=== PATIENT | female | born 2000 | race Caucasian/White ===

== ENCOUNTER 2019-09-25 17:30 | Emergency (ER) | payer OTHER ==
[2019-10-22 14:32] LABS: HEMATOCRIT 48.2 % (36.0-47.0); HEMOGLOBIN 15.8 g/dl (12.0-15.5); MEAN CORPUSCULAR HEMOGLOBIN 30.1 pg (27.0-33.0); MEAN CORPUSCULAR HGB CONC 32.8 g/dl (32.0-36.5); MEAN CORPUSCULAR VOLUME 91.8 fl (80.0-96.0); PLATELET COUNT, AUTOMATED 274 10^3/uL (150-450); RED BLOOD COUNT 5.25 10^6/uL (4.00-5.40); WHITE BLOOD COUNT 6.4 10^3/uL (4.0-10.0)
[2019-11-02 08:16] LABS: ALBUMIN 4.3 GM/DL (3.2-5.2); ALT/SGPT 19 IU/L (0-32); BILIRUBIN,DIRECT 0.1 MG/DL (0.0-0.2); BILIRUBIN,TOTAL 0.6 MG/DL (0.2-1.0); BLOOD UREA NITROGEN 11 MG/DL (7-18); CALCIUM LEVEL 9.6 MG/DL (8.5-10.1); CARBON DIOXIDE LEVEL 26 mmol/L (20-29); CHLORIDE LEVEL 108 MEQ/L (98-107); CREATININE FOR GFR 0.81 MG/DL (0.55-1.30); GLUCOSE, FASTING 94 MG/DL (70-100); POTASSIUM SERUM 4.1 MEQ/L (3.5-5.1); SODIUM LEVEL 141 MEQ/L (136-145)
[2019-11-02 08:17] LABS: LIPASE 138 U/L (73-393)
== END 2019-09-25 19:18 | disposition home or self-care (01) ==
LOC: M ED 17:30
DX: R11.2 Nausea with vomiting, unspecified (principal); R19.7 Diarrhea, unspecified; R51 Headache; Z88.0 Allergy status to penicillin

== ENCOUNTER 2020-03-23 12:22 | Emergency (ER) | payer SELFPAY ==
[~2020-03-23] VITALS: Ht 157.5 cm; Wt 62.3 kg
--- OUTSIDE RECORDS SUMMARY | 2020-03-23 12:50 | CCD ---
Author Author [facility] Organization [facility] Address Unknown Phone Unavailable Care Team Providers Care Sanitation Associate Name Role Phone Reid HEAD WELL PULLER, Jodie Kayleigh Unavailable Reid HEAD WELL PULLER, Jodie Kayleigh Unavailable [phone] Reid HEAD WELL PULLER, Jodie Kayleigh Unavailable Reid HEAD WELL PULLER, Jodie Kayleigh Unavailable Reid HEAD WELL PULLER, Jodie Kayleigh Unavailable [phone] Reid HEAD WELL PULLER, Jodie Kayleigh Unavailable [phone] Trenton, Sofia Ko MD Unavailable Unavailable [place]on, Sofia Ko MD Unavailable Unavailable [place]on, Sofia Ko MD Unavailable Unavailable [place]on, Sofia Ko MD Unavailable Unavailable [place]on, Sofia Ko MD Unavailable Unavailable [place], Sofia Ko MD Unavailable Unavailable [place]on, Sofia Ko MD Unavailable Unavailable [place]on, Sofia Ko MD Unavailable Unavailable [place], Sofia Ko MD Unavailable Unavailable [place], oSfia Ko MD Unavailable Unavailable [place]on, Sofia Ko MD Unavailable Unavailable [place]on, Sofia Ko MD Unavailable Unavailable [place]on, Sofia Ko MD Unavailable Unavailable [place]on, Sofia Ko MD Unavailable Unavailable [place]on, Sofia Ko MD Unavailable Unavailable [place]on, Sofia Ko MD Unavailable Unavailable [place]on, Sofia Ko MD Unavailable Unavailable [place]on, Sofia Ko MD Unavailable Unavailable Trenton, Sofia Ko MD Unavailable Unavailable Trenton, Sofia Ko MD Unavailable Unavailable Trenton, Sofia Ko MD Unavailable Unavailable Trenton, Sofia Ko MD Unavailable Unavailable [place]on, Sofia Ko MD Unavailable Unavailable [place]on, Sofia Ko MD Unavailable Unavailable [place]on, Sofia Ko MD Unavailable Unavailable [place]on, Sofia Ko MD Unavailable Unavailable [place]on, Sofia oK MD Unavailable Unavailable [place]on, Sofia Ko MD Unavailable Unavailable [place]on, Sofia Ko MD Unavailable Unavailable [place]on, Sofia Ko MD Unavailable Unavailable [place]on, A Stefani BURRELL Unavailable Unavailable [place]on, A Stefani BURRELL Unavailable Unavailable [place]on, A Stefani BURRELL Unavailable Unavailable [place], A Stefani BURRELL Unavailable Unavailable [place]on, A Stefani BURRELL Unavailable Unavailable [place]on, A Stefani BURRELL Unavailable Unavailable [place]on, A Stefani BURRELL Unavailable Unavailable [place]on, A Stefani BURRELL Unavailable Unavailable [place]on, A Stefani BURRELL Unavailable Unavailable [place]on, A Stefani BURRELL Unavailable Unavailable [place], A Stefani BURRELL Unavailable Unavailable [place]on, A Stefani BURRELL Unavailable Unavailable [place], A Stefani BURRELL Unavailable Unavailable [place]on, A Stefani BURRELL Unavailable Unavailable [place]on, A Stefani BURRELL Unavailable Unavailable [place]on, A Stefani BURRELL Unavailable Unavailable [place]on, A Stefani BURRELL Unavailable Unavailable [place]on, A Stefani BURRELL Unavailable Unavailable [place]on, A Stefani BURRELL Unavailable Unavailable [place]on, A Stefani BURRELL Unavailable Unavailable [place], A Stefani BURRELL Unavailable Unavailable [place]on, A Stefani BURRELL Unavailable Unavailable [place]on, A Stefani BURRELL Unavailable Unavailable [place]on, A Stefani BURRELL Unavailable Unavailable [place], A Stefani BURRELL Unavailable Unavailable [place], A Stefani BURRELL Unavailable Unavailable [place], A Stefani BURRELL Unavailable Unavailable [place], A Stefani BURRELL Unavailable Unavailable [place], A Stefani BURRELL Unavailable Unavailable [place], A Stefani BURRELL Unavailable Unavailable [place]on, A Stefani BURRELL Unavailable Unavailable [place]on, A Stefani BURRELL Unavailable Unavailable [place], A Stefani BURRELL Unavailable Unavailable [place]on, A Stefani BURRELL Unavailable Unavailable [place]on, A Stefani BURRELL Unavailable Unavailable [place]on, A Stefani BURRELL Unavailable Unavailable [place]on, A Stefani BURRELL Unavailable Unavailable [place]on, A Stefani BURRELL Unavailable Unavailable [place]on, A Stefani BURRELL Unavailable Unavailable [place], A Stefani BURRELL Unavailable Unavailable [place], A Stefani BURRELL Unavailable Unavailable [place], A Stefani BURRELL Unavailable Unavailable [place], A Stefani BURRELL Unavailable Unavailable [place], A Stefani BURRELL Unavailable Unavailable [place], A Stefani BURRELL Unavailable Unavailable of L.C., Medicine Occupation Unavailable Unavailable Yuma, J Sommer PA Unavailable Unavailable Yuma, J Sommer PA Unavailable Unavailable Yuma, J Sommer PA Unavailable Unavailable [place]uma, J Sommer PA Unavailable Unavailable [place]uma, J Sommer PA Unavailable Unavailable [place]uma, J Sommer PA Unavailable Unavailable [place], J Sommer PA Unavailable Unavailable [place], J Sommer PA Unavailable Unavailable [place], J Sommer PA Unavailable Unavailable [place], J Sommer PA Unavailable Unavailable [place]uma, J Sommer PA Unavailable Unavailable [place]uma, J Sommer PA Unavailable Unavailable [place], J Sommer PA Unavailable Unavailable [place], J Sommer PA Unavailable Unavailable [place]uma, J Sommer PA Unavailable Unavailable Yuma, Jaclyn Novoa PA Unavailable Unavailable [place], Jaclyn Novoa PA Unavailable Unavailable [place]uma, Jaclyn Novoa PA Unavailable Unavailable Yuma, Jaclyn Novoa PA Unavailable Unavailable Yuma, Jaclyn Novoa PA Unavailable Unavailable [place], Jaclyn Novoa PA Unavailable Unavailable Yuma, Jaclyn Novoa PA Unavailable Unavailable Re-disclosure Warning The records that you are about to access may contain information from federally-assisted alcohol or drug abuse programs. If such information is present, then the following federally mandated warning applies: This information has been disclosed to you from records protected by federal confidentiality rules (42 CFR part 2). The federal rules prohibit you from making any further disclosure of this information unless further disclosure is expressly permitted by the written consent of the person to whom it pertains or as otherwise permitted by 42 CFR part 2. A general authorization for the release of medical or other information is NOT sufficient for this purpose. The Federal rules restrict any use of the information to criminally investigate or prosecute any alcohol or drug abuse patient.The records that you are about to access may contain highly sensitive health information, the redisclosure of which is protected by Article 27-F of the [facility] Public Health law. If you continue you may have access to information: Regarding HIV / AIDS; Provided by facilities licensed or operated by the [facility] Office of Mental Health; or Provided by the [facility] Office for People With Developmental Disabilities. If such information is present, then the following [facility] mandated warning applies: This information has been disclosed to you from confidential records which are protected by state law. State law prohibits you from making any further disclosure of this information without the specific written consent of the person to whom it pertains, or as otherwise permitted by law. Any unauthorized further disclosure in violation of state law may result in a fine or snf sentence or both. A general authorization for the release of medical or other information is NOT sufficient authorization for further disc losure. Encounters Encounter Providers Location Date Indications Data Source(s ) Attender: Stefani Chowdhury MD [facility] [place] 03/2019 10:19:00 AM EDT - 06/02/2019 10:19:00 AM EDT [facility] Outpatient Attender: Coleen 06/01/2019 10:29:0 0 AM EDT [facility] Outpatient[facility], EST Post AB Attender: Kayleigh decker HEAD WELL PULLER [facility] [place] 05/27/2019 03:00:00 PM EDT - 05/27/2019 03:00:00 PM ED T Encntr for f/u exam aft trtmt for cond oth than malig neoplmEncounter for initial prescription of injectable contracepEncounter for oth general cnsl and advice on contraceptionOther sex counseling [facility] ([facility]) Encntr for f/u exam aft trtmt for cond o th than malig neoplm Encounter for initial prescription of in jectable contracep Encounter for oth general cnsl and advic e on contraception Other sex counseling Attender: Kayleigh MENDES PPNCKATIA [place] 05/20/2019 08:17:00 PM EDT - 05/20/2019 08:17:00 PM EDT Encounter for elective termination of [facility] ([facility]) Encounter for elective termination of pr egnancy Attender: Kayleigh MENDES PPNCKATIA [place] 05/19/2019 02:45:00 PM EDT - 05/19/2019 02:45:00 PM EDT Encounter for elective termination of [facility] ([facility]) Encounter for elective termination of pr egnancy OutpatientOFFICE VISIT, NEW Attender: Sommer PHAN PPNCKATIA [place] 05/12/2019 02:30:00 PM EDT - 05/12/2019 02:30:00 PM EDT Weeks of gestation of not specifiedEncounter for preprocedural laboratory examinationEncounter for other preprocedural examinationEncounter for blood typing state, incidentalProblems related to unwanted pregnancyEncounter for test, result positiveEncounter for oth general cnsl and advice on contraceptionEncntr screen for infections w sexl mode of transmissHuman immunodeficiency virus [HIV] counselingOther sex counseling [facility] ([facility]) Weeks of gestation of not spec ified Encounter for preprocedural laboratory e xamination Encounter for other preprocedural examin ation Encounter for blood typing state, incidental Problems related to unwanted Encounter for test, result pos itive Encounter for oth general cnsl and advic e on contraception Encntr screen for infections w sexl mode of transmiss Human immunodeficiency virus [HIV] couns eling Other sex counseling Medications Medication Brand Name Start Date Product Form Dose Route Admi nistrative Instructions Pharmacy Instructions Status Indications Reaction Description Data Source(s) medroxyprogesterone acetate 150 MG/ML In jectable Suspension medroxyprogesterone 150 mg/mL intramuscular suspension medroxyprogesterone 150 mg/mL intramuscu lar suspension 05/27/2019 12:00:00 AM EDT active IM every 10-13 weeks [facility] ([facility]) Ondansetron 4 MG Oral Tablet ondansetron HCl 4 mg tabl et ondansetron HCl 4 mg tablet 05/19/2019 12:00:00 AM EDT completed 1 tab po every 4 hours prn (#4) [facility] ([facility]) Mifepristone 200 MG Oral Tablet [Mifeprex] Mifeprex 20 0 mg tablet Mifeprex 200 mg tablet 05/19/2019 12:00:00 AM EDT complete d Mifepristone 200 MG Oral Tablet [Mifeprex] [facility] ([facility]) Misoprostol 0.2 MG Oral Tablet misoprostol 200 mcg tab let misoprostol 200 mcg tablet 05/19/2019 12:00:00 AM EDT completed 4 tabs buccally 24-48 hrs after mifepristone (#4) [facility] ([facility]) Insurance Providers Payer name Policy type / Coverage type Policy ID Covered libertarian ID Covered libertarian's relationship to pereyra Policy Pereyra Plan Information SELF PAY ONLY [id number] SP [id number] [facility] [id number] [facility] [id number] Surgeries/Procedures Procedure Description Date Indications Data Source(s) NURSE ONLY DEPO INJ. RN/DOCUMENT CONTROL ASSISTANT Only 020 12:00:00 AM EDT - 05/27/2019 12:00:00 AM EDT [facility] ([facility]) Depo/Medroxyprogesterone Inj. 150 Mg Nurse/CA 05/27/2019 12:00:00 AM EDT - 05/27/2019 12:00:00 AM EDT [facility] ([facility]) CVR BC Ending Method HORM.INJ. 3 MOS 12:00:00 AM EDT - 05/27/2019 12:00:00 AM EDT [facility] ([facility]) CVR Career Orientation Teacher.Svc. STI / H 05/27/2019 12:00:00 AM EDT - 05/27/2019 12:00:00 AM EDT [facility] ([facility]) CVR Career Orientation Teacher.Svc. Other 05/27/2019 12:00:00 AM EDT - 2019 12:00:00 AM EDT [facility] ([facility]) CVR Career Orientation Teacher.Svc. Contraceptive 05/27/2019 12 :00:00 AM EDT - 05/27/2019 12:00:00 AM EDT [facility] ([facility]) CVR Med.Svc. Height/Weight 05/27/2019 12 :00:00 AM EDT - 05/27/2019 12:00:00 AM EDT [facility] ([facility]) CVR Blood Pressure 05/27/2019 12:00:00 AM EDT - 2019 12:00:00 AM EDT [facility] ([facility]) Ultrasound Non Uterus 0 12:00:00 AM EDT - 05/27/2019 12:00:00 AM EDT [facility] ([facility]) OFFICE VISIT, EST Post AB 05/27/2019 12: 00:00 AM EDT - 05/27/2019 12:00:00 AM EDT [facility] ([facility]) CVR Career Orientation Teacher.Svc. Other 05/19/2019 12:00:00 AM EDT - 2019 12:00:00 AM EDT [facility] ([facility]) CVR Career Orientation Teacher.Svc. Options 0 12:00:00 AM EDT - 05/19/2019 12:00:00 AM EDT [facility] ([facility]) CVR Career Orientation Teacher.Svc. Contraceptive 05/19/2019 12 :00:00 AM EDT - 05/19/2019 12:00:00 AM EDT [facility] ([facility]) CVR Med.Svc. Height/Weight 05/19/2019 12 :00:00 AM EDT - 05/19/2019 12:00:00 AM EDT [facility] ([facility]) CVR Blood Pressure 05/19/2019 12:00:00 AM EDT - 2019 12:00:00 AM EDT [facility] ([facility]) Est. Patient MAB Exp Prob Focused 2019 12:00:00 AM EDT - 05/19/2019 12:00:00 AM EDT [facility] ([facility]) Ultrasound Uterus 05/19/2019 12 :00:00 AM EDT - 05/19/2019 12:00:00 AM EDT [facility] ([facility]) NGHN Default 05/19/2019 12:00:00 AM EDT - 05/19/2019 1 2:00:00 AM EDT [facility] ([facility]) Misoprostol, oral, 200 mcg 4 Tabs 2019 12:00:00 AM EDT - 05/19/2019 12:00:00 AM EDT [facility] ([facility]) Mifeprex, oral, 200 mg 05/19/2019 12:00: 00 AM EDT - 05/19/2019 12:00:00 AM EDT [facility] ([facility]) CVR Pos.Preg. NOT DESIRED 05/12/2019 12: 00:00 AM EDT - 05/12/2019 12:00:00 AM EDT [facility] ([facility]) CVR Career Orientation Teacher.Svc. STI / H 05/12/2019 12:00:00 AM EDT - 05/12/2019 12:00:00 AM EDT [facility] ([facility]) CVR Career Orientation Teacher.Svc. Other 05/12/2019 12:00:00 AM EDT - 2019 12:00:00 AM EDT [facility] ([facility]) CVR Med.Svc. Height/Weight 05/12/2019 12 :00:00 AM EDT - 05/12/2019 12:00:00 AM EDT [facility] ([facility]) CVR Blood Pressure 05/12/2019 12:00:00 AM EDT - 2019 12:00:00 AM EDT [facility] ([facility]) HCS Without Test 05/12/2019 12:00:00 AM EDT - 05/12/19 20 12:00:00 AM EDT [facility] ([facility]) HCS Without Test 05/12/2019 12:00:00 AM EDT - 05/12/19 20 12:00:00 AM EDT [facility] ([facility]) CAPILLARY BLOOD DRAW 05/12/2019 12:00:00 AM EDT - 05/12/2019 12:00:00 AM EDT [facility] ([facility]) HEMOGLOBIN 05/12/2019 12:00:00 AM EDT - 05/12/2019 1 2:00:00 AM EDT [facility] ([facility]) BLOOD TYPING, RH (D) 05/12/2019 12:00:00 AM EDT - 05/12/2019 12:00:00 AM EDT [facility] ([facility]) N.GONORRHOEAE, URINE 05/12/2019 12:00:00 AM EDT - 05/12/2019 12:00:00 AM EDT [facility] ([facility]) CHYLMD TRACH, URINE 05/12/2019 12:00:00 AM EDT - 05/11 12:00:00 AM EDT [facility] ([facility]) OFFICE VISIT, NEW 05/12/2019 12:00:00 AM EDT - 020 12:00:00 AM EDT [facility] ([facility]) URINE TEST 05/12/2019 12:00:00 AM EDT - 05/12/2019 12:00:00 AM EDT [facility] ([facility]) Results ID Date Data Source [id number] 05/12/2019 03:08:08 PM EDT [facility] ([facility]) Name Value Range Interpretation Code Description Data Bettye rce(s) Supporting Document(s) 15.80 gm/dL Hemoglobin [facility] ([facility]) ID Date Data Source [id number] 05/12/2019 02:40:52 PM EDT [facility] ([facility]) Name Value Range Interpretation Code Description Data Bettye rce(s) Supporting Document(s) PositiveLot: [id number]: 10/31/2020 High Sensitivity Urine Test [facility] ([facility]) Procedure Social History Code Duration Value Status Description Data Source(s ) Smoking 06/02/2019 12:00:00 AM EDT Never smoker completed Never s moker [facility] ([facility]) 05/27/2019 12:00:00 AM EDT Current non-smoker completed C urrent non-smoker [facility] ([facility]) Vital Signs ID Date Data Source UNK Name Value Range Interpretation Code Description Data Source(s) Body mass index (BMI) [Percentile] Per age and gender 88 % 88 % [facility] ([facility]) Body mass index (BMI) [Ratio] 27.44 kg/m2 Overweight 27.44 kg/m2 [facility] ([facility]) Diastolic blood pressure 79 mm[Hg] 79 mm[Hg] [facility] ([facility]) Systolic blood pressure 115 mm[Hg] 115 mm[Hg] N [facility] ([facility]) Body weight 68.039 kg 68.039 kg [facility]) Body height 157.48 cm 157.48 cm [facility] ([facility]) Body mass index (BMI) [Percentile] Per age and gender 88 % 88 % [facility] ([facility]) Body mass index (BMI) [Ratio] 27.51 kg/m2 Overweight 27.51 kg/m2 [facility] ([facility]) Respiratory rate 16 /min 16 /min [facility] ([facility]) Body temperature 36.50 Mily 36.50 Mily [facility] ([facility]) Heart rate 75 /min 75 /min [facility]) Diastolic blood pressure 68 mm[Hg] 68 mm[Hg] [facility] ([facility]) Systolic blood pressure 110 mm[Hg] 110 mm[Hg] N [facility] ([facility]) Body weight 68.220 kg 68.220 kg [facility] ([facility]) Body height 157.48 cm 157.48 cm [facility] ([facility]) Body mass index (BMI) [Percentile] Per age and gender 88 % 88 % [facility] ([facility]) Body mass index (BMI) [Ratio] 27.58 kg/m2 Overweight 27.58 kg/m2 [facility] ([facility]) Heart rate 96 /min 96 /min [facility] ([facility]) Diastolic blood pressure 81 mm[Hg] 81 mm[Hg] [facility] ([facility]) Systolic blood pressure 128 mm[Hg] 128 mm[Hg] N [facility] ([facility]) Body weight 68.402 kg 68.402 kg [facility] ([facility]) Body height 157.48 cm 157.48 cm [facility] Patient Treatment Plan of Care Planned Activity Planned Date Details Description Data Source (s) medroxyprogesterone acetate 150 MG/ML Injectable Suspe nsion 05/27/2019 12:00:00 AM EDT [facility] Ondansetron 4 MG Oral Tablet 05/19/2019 12:00:00 AM EDT [facility] ([facility]) Misoprostol 0.2 MG Oral Tablet 05/19/2019 12:00:00 AM EDT [facility] ([facility]) Mifepristone 200 MG Oral Tablet [Mifeprex] 05/19/2019 12:00:00 AM E DT [facility] ([facility])
[2020-03-23] MEDS ORDERED: METOCLOPRAMIDE INJ 10MG/2ML VIAL (J2765 PER 1) IV ONE (13:00)
[2020-03-23 13:28] LABS: BASO % 0.4 % (0.0-1.0); EOS # 0.1 10^3/uL (0.0-0.5); EOS % 0.6 % (0.0-3.0); HEMATOCRIT 47.1 % (36.0-47.0); HEMOGLOBIN 16.3 g/dl (12.0-15.5); LYMPH # 1.3 10^3/uL (1.5-5.0); LYMPH % 15.3 % (24.0-44.0); MEAN CORPUSCULAR HEMOGLOBIN 30.6 pg (27.0-33.0); MEAN CORPUSCULAR HGB CONC 34.6 g/dl (32.0-36.5); MEAN CORPUSCULAR VOLUME 88.4 fl (80.0-96.0); MONO # 0.6 10^3/uL (0.0-0.8); MONO % 7.7 % (0.0-5.0); NEUTROPHILS # 6.2 10^3/uL (1.5-8.5); NEUTROPHILS % 75.6 % (36.0-66.0); PLATELET COUNT, AUTOMATED 310 10^3/uL (150-450); RED BLOOD COUNT 5.33 10^6/uL (4.00-5.40); WHITE BLOOD COUNT 8.2 10^3/uL (4.0-10.0)
[2020-03-23] MEDS ORDERED: NS 1,000 ML IV ONE (13:30)
[2020-03-23 14:09] LABS: ALBUMIN 4.9 GM/DL (3.2-5.2); ALT/SGPT 21 U/L (12-78); BILIRUBIN,DIRECT 0.4 MG/DL (0.0-0.2); BILIRUBIN,TOTAL 1.2 MG/DL (0.2-1.0); BLOOD UREA NITROGEN 12 MG/DL (7-18); CALCIUM LEVEL 10.6 MG/DL (8.5-10.1); CARBON DIOXIDE LEVEL 20 MEQ/L (21-32); CHLORIDE LEVEL 100 MEQ/L (98-107); CREATININE FOR GFR 0.65 MG/DL (0.55-1.30); GLUCOSE, FASTING 68 MG/DL (70-100); HCG, SERUM QUANTITATIVE 44061 MIU/ML; LIPASE 83 U/L (73-393); POTASSIUM SERUM 3.5 MEQ/L (3.5-5.1); SODIUM LEVEL 135 MEQ/L (136-145); TOTAL PROTEIN 8.5 GM/DL (6.4-8.2)
--- NOTE | 2020-03-23 14:36 | REP ---
INDICATION: n/v, 6 weeks, weight loss. COMPARISON: None. TECHNIQUE: Real-time sonographic evaluation of gravid uterus performed. FINDINGS: There is a single living intrauterine gestation. The estimated gestational age is 5 weeks 6 days based on a crown-rump length of 3 mm, EDC 11/17/2020. heart rate is 119 beats per minute. There is no subchorionic hemorrhage. Yolk sac is also seen within the gestational sac. The right ovary demonstrates a hypoechoic structure probably representing a corpus luteum measuring 1.3 cm in maximum diameter. Blood flow is seen in the right ovary with duplex Doppler evaluation. IMPRESSION: Viable intrauterine gestation estimated gestational age 5 weeks 6 days and heart rate 119 beats per minute. <Electronically signed by Willard Mccloud > 03/23/20 [id number]
[2020-03-23 15:16] LABS: AMPHETAMINES LEVEL URINE NEGATIVE (NEGATIVE); BARBITURATES URINE NEGATIVE (NEGATIVE); BENZODIAZEPINES URINE NEGATIVE (NEGATIVE); CANNABINOIDS URINE POSITIVE (NEGATIVE); COCAINE METABOLITE URINE NEGATIVE (NEGATIVE); METHADONE URINE NEGATIVE (NEGATIVE); OPIATES URINE NEGATIVE (NEGATIVE); PHENCYCLIDINE URINE NEGATIVE (NEGATIVE)
[2020-03-23] MEDS ORDERED: PYRI25TA2 PO (15:33)
[2020-03-23] MEDS ORDERED: UNIS25TA5 PO (15:33)
[2020-03-23] MEDS ORDERED: ONDA4TAB6 PO (15:33)
[2020-03-23] MEDS ORDERED: REGL10TA6 PO (15:33)
[2020-03-23 15:53] VITALS: BP 124/78
== END 2020-03-23 15:56 | disposition home or self-care (01) ==
LOC: M ED 12:22
DX: Z32.01 Encounter for pregnancy test, result positive (principal); R11.2 Nausea with vomiting, unspecified; E80.6 Other disorders of bilirubin metabolism
CPT/HCPCS: 36415; 76801; 80048; 80076; 80307; 81001; 83690; 84702; 85025; 93976; 96361; 96374; 99284; J2765

== ENCOUNTER → 2020-07-18 | Outpatient (REF) ==
[~2020-07-18] MED LIST: ONDA4TAB6 PO; PYRI25TA2 PO; REGL10TA6 PO; UNIS25TA5 PO
== END ==
LOC: M LABSMTC 11:18
PROVIDERS: ATTEND Pediatrics
DX: Z11.52 Encounter for screening for COVID-19 (principal)

== ENCOUNTER → 2020-10-11 | Outpatient (CLI) | payer OTHER ==
--- NOTE | 2020-10-11 14:51 | REP ---
INDICATION: F/U LOW LYING PLACENTA, SIZE LESS THAN DATES. COMPARISON: None. TECHNIQUE: Transabdominal scanning FINDINGS: Multiple ultrasonographic images of the gravid uterus show a single living intrauterine gestation in the cephalic presentation. Doppler interrogation of the heart shows a heart rate of 124 beats per minute. The subjective amniotic fluid volume is within normal limits. The calculated amniotic fluid index is 10.3 with an expected range 7.9 to 24.9. The placenta is left lateral and not low lying. The tip of the placenta measures greater than 8 cm from the internal os. BPD: 9.2 cm 37 weeks 3 days HC: 33.6 cm 38 weeks 3 days AC: 28.8 cm 32 weeks 6 days FL: 6.3 cm 32 weeks 5 days The estimated weight is 2266 g which is at the 15th percentile for a 35 week 1 day gestational age. Doppler interrogation of the umbilical artery shows an A\B ratio of 2.55. This is within the normal range. IMPRESSION: Limited OB ultrasound as described above showing a single living intrauterine gestation with an estimated gestational age of 35 weeks 0 days via composite criteria and an estimated date of delivery of 11/15/2020 by today's exam. <Electronically signed by Raymond Ring > 10/11/20 [id number]
== END ==
LOC: M RAD 13:45
PROVIDERS: ATTEND Obstetrics & Gynecology
DX: O26.843 Uterine size-date discrepancy, third trimester (principal)

== ENCOUNTER 2020-10-24 12:11 | Inpatient (IN) | payer OTHER ==
[~2020-10-24] VITALS: Ht 157.5 cm; Wt 64.9 kg
[2020-10-24] VITALS (20 sets, daily range): BP systolic 110–170; BP diastolic 66–105
[2020-10-24] MEDS ORDERED: PREN1CHW4 PO (12:34)
[2020-10-24] MEDS ORDERED: HOME MED LIST COMPLETE! XX SCH (12:35)
[2020-10-24] MEDS ORDERED: LR 1,000 ML IV ONE (13:00)
--- NOTE | 2020-10-24 13:44 | REP ---
INDICATION: EVALUATION OF FETUS COMPARISON: 10/11/2020 TECHNIQUE: Transabdominal obstetrical ultrasound with color Doppler evaluation. FINDINGS: Examination demonstrates a single live intrauterine in cephalic presentation. motion is identified by technologist. Placenta is noted left lateral and grade 1 without evidence for placenta previa or abruption. Amniotic fluid volume is normal. Cervix measures 4.3 cm in length and appears closed.. Selected gestational age: 37 weeks 0 days with CELESTINA 11/14/2020. FHR equals 139 beats per minute. OPHELIA: 16.8 cm Umbilical artery SD ratio: 2.38 Biophysical profile score: 8/8 IMPRESSION: Single live intrauterine in cephalic presentation. Amniotic fluid volume and biophysical profile score normal. <Electronically signed by Moose Alonzo > 10/24/20 [id number]
[2020-10-24] MEDS: LR 1,000 ML IV SCH ×2 (14:22→22:58)
--- NOTE | 2020-10-24 15:17 | HPEPDOC ---
Obstetrical History & Physical General Date of Admission 24 OCT 2020 History of Present Illness 20 yo at 37w0d with CELESTINA of 14 NOV 2020 presents to L&D from [facility] for prolonged monitoring and BP check due to elevated BP today at [facility]. She denies headache, chest pain, RUQ pain, and visual changes. She denies contractions, leaking of fluid, vaginal bleeding, and reports positive movement. Interval : Late entry to care at 16 weeks Family history of chromosomal abnormality, Quad screen negative Migraine headaches Varicella NI Chief Complaint: Other (Elevated BP) Information Provided By: Patient Age: 20 : 1 Term: 0 Pre-term: 0 Abortions: 0 Livin Care Care: Good Care Dating Final EDC: Nov 14, 2020 Final EDC by: LMP, 1st trimester (US) EGA at Admission: 37.0 Antepartum Course Height (inches): 62 Pre- weight (lbs.): 145 Admission Weight (lbs.): 141 Change in Weight (lbs.): -3 Past Medical History Past Obstetrical History : Past Obstetrical History: Primgravida BUNDLER History: No pertinent history Past Medical History Medical History Migraine headaches Surgical History: Denies/None Family History Significant Family History: No pertinent family hx Social History Marital Status: Family situation: Spouse/partner home Psychosocial History: No pertinent psych hx * Smoker: non-smoker Alcohol: Denies Drugs: denies Abuse Violence Screening Have you been hit/kicked/slapp: No Have you been sexually assault: No Imunizations Tdap status: current Allergies Coded Allergies: No Known Allergies (Unverified , 03/23/20) Medications Scheduled Pnv No.103/Folic/Om3s/Fish Oil ( Gummies) 1 Each Tab.chew, 1 CHW PO BID Physical Examination Physical Examination GENERAL: Alert and oriented times three. BREAST: . ABDOMEN: Gravid and non-tender to touch. FETUS: Is vertex (VTX) by fetus is vertex (VTX) by Harry. HEART RATE: Regular rate and rhythm. LUNGS: Clear to auscultation (CTA). EXTREMITIES: No edema. No clonus. Deep tendon reflexes (DTRs) + 2. BPP 8/8 OPHELIA: 16.8 cm Vital Signs/I&O Vital Signs Date Time Temp Pulse Resp B/P (MAP) Pulse Ox O2 Delivery O2 Flow Rate FiO2 10/24/20 14:36 70 155/88 (110) 10/24/20 13:37 97.4 18 Room Air Pertinent Laboratoy Data Blood Type: O+ RBC Antibody Screen: Negative HIV: Negative Hepatitis B: Negative Rapid Plasma Reagin: Nonreactive Rubella: Immune Varicella: Nonreactive Chlamydia/Gonorrhea: Negative Group B Streptococcus: Negative Quad Screen Test: Negative Steroid Therapy Steroid Therapy: No Assessment Heart Rate (FHR): 135 Variability: Moderate Accelerations: Present Decelerations: None Tocometer Contractions: Yes Frequency: irregular (occasional contractions with uterine irritability) Multi-drug resistant Organism: No history of MDRO Assessment/Plan Assessment IUP at 37w0d Elevated BP Varicella NI Plan Continue to monitor for GHTN vs Pre-eclampsia Continue 24 hr urine collection Discussed with patient that if BP remains elevated after 1530 then will start IO L for GHTN If BP is in normal range, then will discharge to home and initiate the following plan: Recommended to have her to return to [facility] tomorrow for BP check PIH precautions discussed Discussed PIH labs reassuring Recommended to return 24 hr urine tomorrow at [place] [facility] and labor precautions discussed Keep all future appointments at [facility] Discussed HTN in , GHTN vs pre-eclampsia and that if she has another elevated BP during , then will IOL for GHTN, however if 24 hr urine is elevated will IOL for pre-eclampsia. She verbalized understanding of all information and is without any further questions at this time. Discussed patient status with Dr. Bray, who agrees and endorses this plan BENIGNO LEE CNM Oct 24, 2020 15:05
[2020-10-24] MEDS ORDERED: TRANEXAMIC ACID INJection 1,000 MG in NS 100 ML IV PRN (16:45)
[2020-10-24] MEDS ORDERED: OXYTOCIN DRIP 30 UNITS in IV 1 EA IV PRN (16:45)
[2020-10-24 17:41] LABS: HEMOGLOBIN 12.8 g/dl (12.0-15.5); MEAN CORPUSCULAR HGB CONC 32.8 g/dl (32.0-36.5); MEAN CORPUSCULAR VOLUME 88.4 fl (80.0-96.0); PLATELET COUNT, AUTOMATED 117 10^3/uL (150-450); RED BLOOD COUNT 4.41 10^6/uL (4.00-5.40)
[2020-10-24 17:52] LABS: ALT/SGPT 11 U/L (12-78); BILIRUBIN,TOTAL 0.3 MG/DL (0.2-1.0); CREATININE FOR GFR 0.55 MG/DL (0.55-1.30); GLOMERULAR FILTRATION RATE > 60.0 (>60); LDH LACTATE DEHYDROGENASE 191 U/L (84-246); URIC ACID 5.1 MG/DL (2.6-6.0)
[2020-10-24] MEDS ORDERED: miSOPROStol 50MCG 1/2 TABLET PO SCH (18:00)
[2020-10-24] MEDS: miSOPROStol 50MCG 1/2 TABLET SL SCH ×2 (19:07→23:58)
[2020-10-24 19:43] LABS: APPEARANCE, URINE HAZY (CLEAR); BACTERIA, URINE AUTO 2+ (NEGATIVE); BILIRUBIN, URINE AUTO NEGATIVE (NEGATIVE); BLOOD, URINE BLOOD NEGATIVE (NEGATIVE); COLOR, URINE STRAW (YELLOW); GLUCOSE, URINE (UA) AUTO NEGATIVE (NEGATIVE); KETONE, URINE AUTO NEGATIVE (NEGATIVE); LEUKOCYTE ESTERASE, URINE AUTO 3+ (NEGATIVE); NITRITE, URINE AUTO NEGATIVE (NEGATIVE); PROTEIN, URINE AUTO NEGATIVE (NEGATIVE); RBC, URINE AUTO 2 /HPF (0-3); SPECIFIC GRAVITY URINE AUTO 1.004 (1.002-1.035); SQUAMOUS EPITHELIAL CELL UR AU 6 /HPF (0-6); UROBILINOGEN, URINE AUTO 0.2 mg/dL (0.0-2.0); WBC, URINE AUTO 10 /HPF (0-3)
[2020-10-24 20:01] LABS: CREATININE,RANDOM URINE 30.6 MG/DL; TOTAL PROTEIN,RANDOM URINE 6.4 MG/DL (0.0-12.0)
--- NOTE | 2020-10-24 20:01 | IPNPDOC ---
Text Note Date of Service The patient was seen on 10/24/20. NOTE Andrew is a 20 yo at 37+0 weeks gestation who went to her PCM this morning with a headache and report of feeling "unwell." She had COVID testing which was negative. She was noted to be hypertensive. She has no history of elevated BP. Tox labs were drawn and she was sent to L&D for monitoring. On L&D she continued to have persistently elevated BP. Labwork from this morning was unremarkable other than a platelet level of 125. Platelet level previously in was 163. I repeated toxemia labs this morning. Her CMP is unremarkable and her urine pr:cr ratio is pending. Platelets tonight are 117. FHR tracing has been Cat I. A formal US demonstrated a normal OPHELIA and a BPP of 8/8. She reports feeling well at the bedside. Her headache has resolved. She denies any RUQ pain, visual changes, or SOB. Andrew has GHTN and her downtrending platelets are concerning. I recommended an IOL today. Cervix is unfavorable and will start with SL cytotec. She will remain NPO. Will repeat CBC Q4-6 H and monitor vitals closely. Will initiate IV magnesium if necessary. I also discussed with her the possibility of not being able to get an epidural if her platelet levels drop too low. We discussed the induction process in detail. All patient and questions answered. Kathy Antonio, I+O Kathy VALDES, I+O Laboratory Tests 10/24/20 17:17 Vital Signs Date Time Temp Pulse Resp B/P (MAP) Pulse Ox O2 Delivery O2 Flow Rate FiO2 10/24/20 18:57 57 141/95 (110) 10/24/20 16:52 98.0 10/24/20 13:37 18 Room Air JASON CORRAL DO Oct 24, 2020 20:01
[2020-10-24] MEDS ORDERED: BUTORPHANOL 2 MG/ML INJ (J0595) IV PRN ×2 (20:05→20:15)
[2020-10-24] MEDS ORDERED: miSOPROStol 50MCG 1/2 TABLET SL SCH (22:00)
[2020-10-24 22:01] LABS: HEMATOCRIT 41.9 % (36.0-47.0); HEMOGLOBIN 13.6 g/dl (12.0-15.5); MEAN CORPUSCULAR HEMOGLOBIN 28.9 pg (27.0-33.0); MEAN CORPUSCULAR HGB CONC 32.5 g/dl (32.0-36.5); PLATELET COUNT, AUTOMATED 127 10^3/uL (150-450); RED BLOOD COUNT 4.71 10^6/uL (4.00-5.40); WHITE BLOOD COUNT 10.9 10^3/uL (4.0-10.0)
[2020-10-25] VITALS (71 sets, daily range): BP systolic 104–196; BP diastolic 55–141
[2020-10-25] MEDS: LR 1,000 ML IV SCH ×3 (01:07→13:52)
[2020-10-25] MEDS ORDERED: PROMETHAZINE INJ 25 MG/ML VIAL (J2550) IV PRN (01:15)
[2020-10-25] MEDS: miSOPROStol 50MCG 1/2 TABLET SL SCH ×2 (05:32→07:00)
[2020-10-25] MEDS ORDERED: FENTANYL 2MCG/ML ROPIVACAINE 0.2% IN 0.9% NACL 100ML IVBAG As Ordered ONE (06:27)
[2020-10-25 06:50] LABS: HEMATOCRIT 40.9 % (36.0-47.0); HEMOGLOBIN 13.7 g/dl (12.0-15.5); MEAN CORPUSCULAR HEMOGLOBIN 29.3 pg (27.0-33.0); MEAN CORPUSCULAR HGB CONC 33.5 g/dl (32.0-36.5); MEAN CORPUSCULAR VOLUME 87.4 fl (80.0-96.0); PLATELET COUNT, AUTOMATED 102 10^3/uL (150-450); RED BLOOD COUNT 4.68 10^6/uL (4.00-5.40)
[2020-10-25] MEDS ORDERED: TERBUTALINE SULFATE 1 MG/ML VIAL (J3105) SC STA (07:13)
[2020-10-25] MEDS ORDERED: TERBUTALINE SULFATE 1 MG/ML VIAL (J3105) As Ordered ONE (07:14)
[2020-10-25] MEDS ORDERED: diphenhydrAMINE 50MG/ML VIAL (J1200) IV PRN (07:30)
[2020-10-25] MEDS ORDERED: LACTATED RINGER'S 1000 ML IV PRN (07:30)
[2020-10-25] MEDS ORDERED: NALOXONE INJ 0.4MG/1ML VIAL (J2310 PER 1MG) IV PRN (07:30)
[2020-10-25] MEDS ORDERED: FENTANYL/ROPIVACAINE/NACL BAG 100 ML EPIDURAL SCH (07:30)
[2020-10-25] MEDS ORDERED: EPIDURAL/PCA KEYS XX PRN (07:30)
[2020-10-25] MEDS ORDERED: ePHEDrine SULFATE 25 MG/5 ML(5MG/ML) SYRINGE IV PRN (07:30)
[2020-10-25] MEDS ORDERED: EPIDURAL COMMENT XX SCH (07:30)
[2020-10-25] MEDS ORDERED: REFRIGERATOR IV KEYS XX PRN (07:30)
[2020-10-25] MEDS ORDERED: ONDANSETRON 4MG/2ML VIAL IV PRN (07:30)
--- NOTE | 2020-10-25 07:36 | IPNPDOC ---
Text Note Date of Service The patient was seen on 10/25/20. NOTE Andrew has progressed very quickly after three doses of cytotec. This morning she had severe pain with contractions and was found to be 8cm. She received an epidural about 40 minutes ago. There was tachysystole and she just received 0.25mg SQ terbutaline. FHR tracing is Cat II due to variable decels, but with moderate variability and it is overall reassuring. Cervix: C/C/+1. AROM performed productive of clear fluid. Patient pushing well. Anticipate shortly. Asa VS,Kathy, I+O VS, Kathy, I+O Laboratory Tests 10/24/20 17:17 10/24/20 21:48 10/25/20 06:36 Vital Signs Date Time Temp Pulse Resp B/P (MAP) Pulse Ox O2 Delivery O2 Flow Rate FiO2 10/25/20 06:53 54 18 143/73 (96) 10/25/20 05:44 97.0 10/24/20 13:37 Room Air I&O- Last 24 Hours up to 6 AM 10/25/20 06:00 Intake Total 4547 ml Balance 4547 ml JASON CORRAL DO Oct 25, 2020 07:36
[2020-10-25] MEDS ORDERED: OXYTOCIN DRIP 30 UNITS in IV 1 EA IV PRN (08:45)
[2020-10-25] MEDS ORDERED: DOCUSATE SODIUM 100MG CAPSULE PO PRN ×2 (08:50)
[2020-10-25] MEDS ORDERED: IBUPROFEN 600MG TAB PO PRN ×2 (08:50)
[2020-10-25] MEDS ORDERED: IBUPROFEN 800 MG TAB PO PRN ×2 (08:50)
[2020-10-25] MEDS ORDERED: DIBUCAINE 1% OINTMENT 30GM TOP PRN ×2 (08:50)
[2020-10-25] MEDS ORDERED: ACETAMINOPHEN TAB 650MG DOSE (2X325MG) PO PRN ×2 (08:50)
[2020-10-25] MEDS ORDERED: ACETAMINOPHEN 500 MG TAB PO PRN ×2 (08:50)
[2020-10-25] MEDS ORDERED: METHYLERGONOVINE MALEATE 0.2 MG TAB PO PRN ×2 (08:50)
[2020-10-25] MEDS: PRENATAL VITAMINS CHEWABLE TABLET PO SCH (09:00)
[2020-10-25] MEDS ORDERED: PRENATAL VITAMINS CHEWABLE TABLET PO SCH (09:00)
--- NOTE | 2020-10-25 09:02 | DNPDOC ---
[facility] Delivery Note Delivery Note Date of Delivery: [id number] @ 0757 hours Pre-Procedure Diagnosis: 1. 18 year old at 37+0 weeks gestation 2. Late entry to care at 16 weeks 3. Varicella NI 4. Induction of labor for Gestational Hypertension Post-Procedure Diagnosis: 1. Normal spontaneous vaginal delivery, term up to 40 weeks gestation 2. Vaginal and Bilateral labial lacerations 3. Nuchal cord complicating delivery, without compression Procedure: Spontaneous vaginal delivery Delivery Provider: MAJ Marge Pierce CNM Anesthesia: Epidural Estimated Blood Loss: 350 ml Findings: Delivered viable infant male weighing 2620gm (5#12oz), Score 9/9. Complications: None Delivery Summary: Patient is a 18 year old 1 now para 1 who was admitted to labor and delivery for IOL for GHTN. She progressed to C/C/+1 following 3 doses of cytotec. Reassuring FHR tracing throughout pushing. Good directed pushing efforts delivered OA, with head restituting to ROT. Delivered infant through loose nuchal cord. Remaining body cord unwrapped following delivery. Left anterior shoulder, posterior shoulder, and corpus delivered easily with maternal pushing efforts. to maternal abdomen for drying, stimulation and assessment by nursing staff. Cord clamped x2 and cut by FOB following cessation of pulse. Cord blood obtained for typing due to maternal blood type. Placenta delivered with gentle cord traction, in Elizabet mechanism, appears complete and intact with 3VC. Fundus massaged to firm with minimal bleeding. Inspection revealed small posterior wall vaginal laceration and bilateral inner labial lacerations. Labial lacerations repaired with 4-0 Vicryl SH using running stitch. Vaginal laceration repaired with 3-0 vicryl in the usual fashion. Good approximation and hemostasis under exiting epidural anesthesia for all repairs. Patient tolerated well. Sponge, needle, instrument count correct following delivery. Vaginal sweep confirmed nothing foreign remaining in vagina. Patient and infant stable when I left. Desires to breast feed and use Depo for control (desires to receive prior to discharge). I delivered the , completed the repair, and completed the documentation personally. -KIERA Saez ADINA M. CNM Oct 25, 2020 09:01
[2020-10-25] MEDS ORDERED: LABETALOL 100MG/20ML VIAL As Ordered ONE (13:21)
[2020-10-25] MEDS: LABETALOL 100MG/20ML VIAL IV SCH ×2 (13:33→13:52)
[2020-10-25] MEDS ORDERED: MAG Sulf (L&D) 4 GM/100 ML 4 GM in IV 1 EA IV ONE (14:00)
[2020-10-25] MEDS ORDERED: LIDOCAINE 2% 5ML JELLY UROJET TOP ONE (14:00)
[2020-10-25 14:02] LABS: HEMATOCRIT 38.7 % (36.0-47.0); HEMOGLOBIN 12.7 g/dl (12.0-15.5); MEAN CORPUSCULAR HEMOGLOBIN 29.1 pg (27.0-33.0); MEAN CORPUSCULAR HGB CONC 32.8 g/dl (32.0-36.5); MEAN CORPUSCULAR VOLUME 88.8 fl (80.0-96.0); RED BLOOD COUNT 4.36 10^6/uL (4.00-5.40); WHITE BLOOD COUNT 13.9 10^3/uL (4.0-10.0)
[2020-10-25 14:05] LABS: PLATELET COUNT, AUTOMATED 99 10^3/uL (150-450)
[2020-10-25] MEDS: MAG Sulf (OBGYN) 20GM/500ML 20,000 MG in IV 1 EA IV SCH (14:15)
[2020-10-25 14:32] LABS: CREATININE FOR GFR 0.64 MG/DL (0.55-1.30)
[2020-10-25 14:33] LABS: ALT/SGPT 14 U/L (12-78); BILIRUBIN,TOTAL 0.4 MG/DL (0.2-1.0); GLOMERULAR FILTRATION RATE > 60.0 (>60); LDH LACTATE DEHYDROGENASE 256 U/L (84-246); URIC ACID 5.1 MG/DL (2.6-6.0)
--- NOTE | 2020-10-25 16:49 | IPNPDOC ---
Progress Note Date of Service: Oct 25, 2020 Day#: 0 Progress Note Patient admitted yesterday for IOL at 37+0wks for GHTN. Pt progressed rapidly after 3doses cytotec and has uncomplicated this morning. Normotensive after delivery. Was called by nursing staff at 1317 this afternoon with reported severe range blood pressures as below. Patient assessed and denies any MARES, visual changes, nausea, vomiting or abdominal pain aside from uterine cramping. O: VS: 1230 BP 170/82 1247 BP 190/101 1302 BP 192/95 1317 BP 196/93 Physical Exam: General: Alert. Well-appearing, in no acute distress. Neuro: Oriented to time, place, and person. Patellar Deep tendon reflexes normal. Negative clonus. RESP: Lungs clear to auscultation bilaterally without wheezes, rales or rhonchi. Unlabored breathing. CV: Normal RRR, no murmur. No edema to bilateral upper and lower extremities. Negative calf tenderness. ABD: Soft, non-tender. BS normal x4 quad. Fundus: Firm U-1, Fundus non-tender. Laboratory Tests 10/25/20 13:45 Item Value Date Time Lactate Dehydrogenase 256 U/L H 10/25/20 1345 Alanine Aminotransferase (ALT/SGPT) 14 U/L 10/25/20 1345 Aspartate Amino Transf (AST/SGOT) 27 U/L 10/25/20 1345 Total Bilirubin 0.4 MG/DL 10/25/20 1345 Uric Acid 5.1 MG/DL 10/25/20 1345 Glomerular Filtration Rate > 60.0 10/25/20 1345 Creatinine 0.64 MG/DL 10/25/20 1345 A/P 18yo G 1 P 1 day 0 s/p at 37+1 wks gestation RX labetalol 20mg now, repeat in Q10 min if continues with severe range blood pressures. Repeat tox labs ordered and normal. with exception of known low platelets. Consulted with Dr. Canales. Plan to start Magnesium sulfate IV now, 4gm loading dose with 2gm/hr continuous rate. Replace finley cath for strict I&O Q1hr. Following 2 doses of labetalol (last given at 1352), patient returned to mild range elevated blood pressures. Last BP at 1517 129/93. Plan to continue mag sulfate for 24hrs post delivery. VS, I&O, 24H, Fishbone Vital Signs/I&O Vital Signs Date Time Temp Pulse Resp B/P (MAP) Pulse Ox O2 Delivery O2 Flow Rate FiO2 10/25/20 15:17 97.4 74 18 128/93 (105) 10/24/20 13:37 Room Air I&O- Last 24 Hours up to 6 AM 10/25/20 06:00 Intake Total 4547 ml Balance 4547 ml Laboratory Data 24H LABS Laboratory Tests 2 10/24/20 17:17: Nucleated Red Blood Cells % (auto) 0.0, Glomerular Filtration Rate > 60.0, Uric Acid 5.1, Total Bilirubin 0.3, Aspartate Amino Transf (AST/SGOT) 13, Alanine Aminotransferase (ALT/SGPT) 11L, Lactate Dehydrogenase 191 10/24/20 19:17: Urine Color STRAW, Urine Appearance HAZY, Urine pH 6.0, Urine Specific Corinne 1.004, Urine Protein NEGATIVE, Urine Glucose (Auto)(UA) NEGATIVE, Urine Ketones (Auto) NEGATIVE, Urine Blood NEGATIVE, Urine Nitrite NEGATIVE, Urine Bilirubin NEGATIVE, Urine Urobilinogen 0.2, Urine Leukocyte Esterase (Auto) 3+H, Urine WBC (Auto) 10H, Urine RBC (Auto) 2, Urine Hyaline Casts (Auto) 0, Urine Bacteria (Auto) 2+H, Urine Squamous Epithelial Cells 6, Urine Sperm (Auto) 10/24/20 19:18: Urine Random Creatinine 30.6, Urine Random Total Protein 6.4 10/24/20 21:48: Nucleated Red Blood Cells % (auto) 0.0 10/25/20 06:36: Nucleated Red Blood Cells % (auto) 0.0 10/25/20 13:45: Nucleated Red Blood Cells % (auto) 0.0, Immature Platelet Fraction 17.1H, Glomerular Filtration Rate > 60.0, Uric Acid 5.1, Total Bilirubin 0.4, Aspartate Amino Transf (AST/SGOT) 27, Alanine Aminotransferase (ALT/SGPT) 14, Lactate Dehydrogenase 256H CBC/BMP Laboratory Tests 10/24/20 17:17 10/24/20 21:48 10/25/20 06:36 10/25/20 13:45 ELDER JOHNSON CNM Oct 25, 2020 16:49
[2020-10-26] VITALS (25 sets, daily range): BP systolic 101–166; BP diastolic 59–101
[2020-10-26] MEDS: MAG Sulf (OBGYN) 20GM/500ML 20,000 MG in IV 1 EA IV SCH (00:26)
[2020-10-26] MEDS: LR 1,000 ML IV SCH (01:39)
[2020-10-26 05:48] LABS: BASO % 0.2 % (0.0-1.0); EOS # 0.1 10^3/uL (0.0-0.5); EOS % 0.8 % (0.0-3.0); HEMOGLOBIN 11.1 g/dl (12.0-15.5); LYMPH % 18.4 % (24.0-44.0); MEAN CORPUSCULAR HEMOGLOBIN 28.9 pg (27.0-33.0); MEAN CORPUSCULAR HGB CONC 32.6 g/dl (32.0-36.5); MEAN CORPUSCULAR VOLUME 88.5 fl (80.0-96.0); MONO # 0.7 10^3/uL (0.0-0.8); NEUTROPHILS # 8.1 10^3/uL (1.5-8.5); PLATELET COUNT, AUTOMATED 102 10^3/uL (150-450); RED BLOOD COUNT 3.84 10^6/uL (4.00-5.40); WHITE BLOOD COUNT 10.9 10^3/uL (4.0-10.0)
[2020-10-26 06:17] LABS: ALT/SGPT 14 U/L (12-78); BILIRUBIN,TOTAL 0.3 MG/DL (0.2-1.0); CREATININE FOR GFR 0.51 MG/DL (0.55-1.30); GLOMERULAR FILTRATION RATE > 60.0 (>60); LDH LACTATE DEHYDROGENASE 348 U/L (84-246); URIC ACID 4.9 MG/DL (2.6-6.0)
--- NOTE | 2020-10-26 07:03 | IPNPDOC ---
Progress Note Date of Service: Oct 26, 2020 Progress Note Patient is a 18yo G1 now P1001 induced for GHTN at 37wks, now status post uncomplicated spontaneous vaginal delivery of a male weighing 2620gm (5#12oz), Score 9/9, doing well day # 1. Her immediate course was complicated by development of preeclampsia with severe features for which she was started on magnesium. She required 2 doses of IV labetalol and has been normotensive since. She is currently on bedrest with finley catheter and has had excellent urine output. Denies MARES, vision changes, RUQ pain or dyspnea. Breast feeding without issue. Reports lochia is minimal. OBJECTIVE: VITAL SIGNS: Within normal limits, afebrile. Alert and oriented times three. Breath sounds clear to auscultation. Heart rate: Regular rate and rhythm Abdomen: Fundus firm at U-2. Soft, NTTP. ASSESSMENT: Patient is a 18yo G1 now P1001 induced for GHTN at 37wks, now status post uncomplicated spontaneous vaginal delivery of a male infant weighing 2620gm (5#12oz), Score 9/9, doing well day # 1. Vitals within normal limits, afebrile, hemodynamically stable with no evidence of infection. PLAN: 1. Discharge to home likely tomorrow. Currently on magnesium x24hrs post delivery. Repeat labs this AM, plt stable 2. Tylenol and Motrin for pain. 3. Encourage breast feeding and ambulation once magnesium discontinued. 4. Desires depoProvera for contraception 5. Routine PP visit in 6 weeks in clinic. 6. Discussed return precautions at length. VS, I&O, 24H, Kathy Vital Signs/I&O Vital Signs Date Time Temp Pulse Resp B/P (MAP) Pulse Ox O2 Delivery O2 Flow Rate FiO2 10/26/20 05:41 68 16 133/91 (105) 10/26/20 01:10 98.5 10/24/20 13:37 Room Air I&O- Last 24 Hours up to 6 AM 10/26/20 06:00 Intake Total 3942 ml Output Total 4600 ml Balance -658 ml Laboratory Data 24H LABS Laboratory Tests 2 10/25/20 13:45: Nucleated Red Blood Cells % (auto) 0.0, Immature Platelet Fraction 17.1H, Glomerular Filtration Rate > 60.0, Uric Acid 5.1, Total Bilirubin 0.4, Aspartate Amino Transf (AST/SGOT) 27, Alanine Aminotransferase (ALT/SGPT) 14, Lactate Dehydrogenase 256H 10/26/20 05:39: Nucleated Red Blood Cells % (auto) 0.0, Glomerular Filtration Rate > 60.0, Uric Acid 4.9, Total Bilirubin 0.3, Aspartate Amino Transf (AST/SGOT) 25, Alanine Aminotransferase (ALT/SGPT) 14, Lactate Dehydrogenase 348H, Immature Granulocyte % (Auto) 0.6, Neutrophils (%) (Auto) 74.0H, Lymphocytes (%) (Auto) 18.4L, Monocytes (%) (Auto) 6.0, Eosinophils (%) (Auto) 0.8, Basophils (%) (Auto) 0.2, Neutrophils # (Auto) 8.1, Lymphocytes # (Auto) 2.0, Monocytes # (Auto) 0.7, Eosinophils # (Auto) 0.1, Basophils # (Auto) 0.0 CBC/BMP Laboratory Tests 10/25/20 13:45 10/26/20 05:39 BROCK MORGAN M.D. Oct 26, 2020 07:03
[2020-10-26] MEDS: PRENATAL VITAMINS CHEWABLE TABLET PO SCH (09:32)
[2020-10-26] MEDS: LABETALOL 200 MG TAB PO SCH ×2 (10:08→21:22)
--- NOTE | 2020-10-26 10:17 | IPNPDOC ---
Text Note Date of Service The patient was seen on 10/26/20. NOTE Patient with yesterday am after IOL for GHTN. Following delivery yester day, patient with severe range BP that resolved following two doses 20mg Labetalol IV. Magnesium sulfate was started at 1350. Overnight has has a few mild range elevations in blood pressure, with good urine output. AM labs stable with platelets at 102. Today, patient desires to be off mag and have finley out. Consulted with Dr. Duran. Magnesium sulfate was stopped this am. Was notified by nursing staff of rebound elevated blood pressures at 0940. VS: 0842 [place] [address] 0934 BP 166/95 0935 BP 159/94 0957 BP 162/101 A/P 18yo G 1 P 1 day 1 s/p at 37+1 wks gestation Keep heplock IV. RX labetalol 200mg PO BID to start now. Plan f/u BP check in 30-45min following administration. If BP remains stable, anticipate transfer to unit. VS,Fishbone, I+O VS, Fishbone, I+O Laboratory Tests 10/25/20 13:45 10/26/20 05:39 Vital Signs Date Time Temp Pulse Resp B/P (MAP) Pulse Ox O2 Delivery O2 Flow Rate FiO2 10/26/20 09:58 75 20 140/91 (107) 10/26/20 07:29 97.2 10/24/20 13:37 Room Air l I&O- Last 24 Hours up to 6 AM 10/26/20 05:59 Intake Total 3942 ml Output Total 4600 ml Balance -658 ml ELDER JOHNSON CNM Oct 26, 2020 10:17
[2020-10-27 02:00] VITALS: BP 149/84
[2020-10-27 06:00] VITALS: BP 136/66
--- NOTE | 2020-10-27 07:20 | DS.PDOC ---
Discharge Summary General Date of Admission Oct 24, 2020 at 4:18 pm Date of Discharge 10/27/20 Discharge Summary PROCEDURES PERFORMED DURING STAY: Vaginal delivery, MAGNESIUM THERAPY ADMITTING DIAGNOSES: 1. GHTN 2. PRE E WITH SEVERE FEATURE DISCHARGE DIAGNOSES: same as above 1. . COMPLICATIONS/CHIEF COMPLAINT: Elevated Bp. HISTORY OF PRESENT ILLNESS: Patient is a 18yo G1 now P1001 induced for GHTN at 37wks, now status post uncomplicated spontaneous vaginal delivery of a male infant weighing 2620gm (5#12oz), Score 9/9, doing well day # 1. HOSPITAL COURSE: Her immediate course was complicated by development of preeclampsia with severe features for which she was started on magnesium AND RECIVED IT FOR 18HRS. She required 2 doses of IV labetalol and has been no rmotensive since. After she finished mag, she was transfered to where she continued to recover and kendall well with timmy baby. she is without issues. Denies MARES, vision changes, RUQ pain or dyspnea. . Reports lochia is minimal. . DISCHARGE MEDICATIONS: Please see below. ALLERGIES: Please see below. PHYSICAL EXAMINATION ON DISCHARGE: VITAL SIGNS: Within normal limits, afebrile. Alert and oriented times three. Breath sounds clear to auscultation. Heart rate: Regular rate and rhythm Abdomen: Fundus firm at U-2. Soft, NTTP LABORATORY DATA: Please see below. IMAGING:n/a PROGNOSIS: good ACTIVITY: As tolerated DIET: regular DISCHARGE PLAN: d/c home DISPOSITION: .d/c home DISCHARGE INSTRUCTIONS: 1. pelvic rest for 6 weeks. no tampon, baths, intercourse for 6 weeks ITEMS TO FOLLOWUP ON ON OUTPATIENT: 1. BP Check in 2 days then 1 week, then 6 weeks DISCHARGE CONDITION: Stable. TIME SPENT ON DISCHARGE: 45minutes. Vital Signs/I&Os Vital Signs Date Time Temp Pulse Resp B/P (MAP) Pulse Ox O2 Delivery O2 Flow Rate FiO2 10/27/20 06:00 97.4 58 16 136/66 (89) 100 Room Air I&O- Last 24 Hours up to 6 AM 10/27/20 06:00 Intake Total 797.0 ml Output Total 1425 ml Balance -628.0 ml Discharge Medications Scheduled Pnv No.103/Folic/Om3s/Fish Oil ( Gummies) 1 Each Tab.chew, 1 CHW PO BID, (Reported) Allergies Coded Allergies: No Known Allergies (Unverified , 03/23/20) ODELL WEBSTER MD Oct 27, 2020 7:20 am
[2020-10-27] MEDS ORDERED: LABE20TAB PO (07:23)
[2020-10-27] MEDS ORDERED: IBUP80TA PO (07:23)
[2020-10-27] MEDS ORDERED: ACET-683 PO (07:23)
[2020-10-27] MEDS ORDERED: COLA100C5 PO (07:23)
[2020-10-27 08:15] VITALS: BP 154/62
[2020-10-27 08:36] VITALS: BP 154/97
[2020-10-27] MEDS: PRENATAL VITAMINS CHEWABLE TABLET PO SCH (08:36)
[2020-10-27] MEDS: LABETALOL 200 MG TAB PO SCH (08:36)
== END 2020-10-27 11:00 | disposition home or self-care (01) | DRG 807 ==
LOC: M LDO 12:11 → M LDI 16:18 → M OBS 10-26 12:45
PROVIDERS: ADMIT Registered Nurse Maternal Newborn; ATTEND Registered Nurse Maternal Newborn
PROC: 3E0P7GC Introduction of Other Therapeutic Substance into Female Reproductive, Via Natural or Artificial Opening (ICD-10-PCS; 2020-10-24)
PROC: 10E0XZZ Delivery of Products of Conception, External Approach (ICD-10-PCS; principal; 2020-10-25)
PROC: 10907ZC Drainage of Amniotic Fluid, Therapeutic from Products of Conception, Via Natural or Artificial Opening (ICD-10-PCS; 2020-10-25)
PROC: 0HQ9XZZ Repair Perineum Skin, External Approach (ICD-10-PCS; 2020-10-25)
DX: O14.14 Severe pre-eclampsia complicating childbirth (principal); Z37.0 Single live birth; O13.4 Gestational [pregnancy-induced] hypertension without significant proteinuria, complicating childbirth; Z3A.37 37 weeks gestation of pregnancy; O76 Abnormality in fetal heart rate and rhythm complicating labor and delivery; O69.81X0 Labor and delivery complicated by cord around neck, without compression, not applicable or unspecified; O70.0 First degree perineal laceration during delivery